=== PATIENT | female | born 1985 | race Caucasian/White ===

== ENCOUNTER 2024-11-08 15:42 | Outpatient (CLI) | payer BC, SELFPAY ==
[2024-11-08 16:23] LABS: Basophils # 0.1 K/mm3 (0-0.2); Basophils % 0.8 % (0.1-2.0); Eosinophils # 0.1 K/mm3 (0.0-0.4); Eosinophils % 1.4 % (0.1-12.0); Hematocrit 40.7 % (37.0-47.0); Hemoglobin 14.6 g/dL (12.2-16.2); Lymphocytes # 2.8 K/mm3 (0.7-4.5); Lymphocytes % 33.6 % (10-50); Mean Corpuscular HGB Conc 35.9 g/dL (31.8-35.4); Mean Corpuscular Hemoglobin 33.3 pg (27.0-31.2); Mean Corpuscular Volume 92.7 fl (81-99); Mean Platelet Volume 9.7 fl (7.4-10.4); Monocytes # 0.5 K/mm3 (0.1-1.0); Monocytes % 6.3 % (1.7-9.3); Neutrophils # 4.8 K/mm3 (1.8-7.8); Neutrophils % 57.7 % (37.0-80.0); Platelet Count 330 K/mm3 (142-424); Red Blood Count 4.39 M/mm3 (4.20-5.40); Red Cell Distribution Width 12.8 % (11.5-17.5); White Blood Count 8.3 K/mm3 (4.8-10.8)
[2024-11-08 16:36] LABS: Chloride 106 mmol/L (98-107)
[2024-11-08 16:37] LABS: Albumin Level 4.5 g/dl (3.5-5.0); Potassium 3.7 mmoL/L (3.5-5.1); Sodium 136 mmol/L (136-145)
[2024-11-08 16:39] LABS: Blood Urea Nitrogen 10 mg/dl (7-17); Estimated Glomerular Filt Rate 111 ml/min (>60); GFR (African American) 134 ML/MIN (>60)
[2024-11-08 16:40] LABS: Alanine Aminotransferase 19 U/L (12-78); Albumin/Globulin Ratio 1.7 (1.1-1.8); Alkaline Phosphatase 49 U/L (38-126); Anion Gap 10.7 mEq/L (5-15); Aspartate Amino Transferase 27 U/L (14-36); Bilirubin,Total 0.2 mg/dl (0.2-1.3); Calcium 9.2 mg/dl (8.4-10.2); Carbon Dioxide 23 mmol/L (22.0-30.0); Globulin 2.7 g/dL (1.3-3.2); Glucose 103 mg/dl (74-100); Total Protein,Serum 7.2 g/dl (6.3-8.2)
[2024-11-08 17:06] LABS: HCG,Quantitative < 2 mIU/ml (0-5.42)
== END 2024-11-08 23:59 | disposition home or self-care (01) ==
LOC: PREOP 15:43
PROVIDERS: PCP Nurse Practitioner; Visit Provider Obstetrics & Gynecology
DX: N93.9 Abnormal uterine and vaginal bleeding, unspecified (principal)
CPT/HCPCS: 80053; 84702; 85025

== ENCOUNTER 2024-11-10 10:20 | Day surgery (SDC) | payer BC, SELFPAY ==
[2024-11-08 16:06] VITALS: BMI 34.4
[2024-11-10] VITALS (10 sets, daily range): BP systolic 145–180; BP diastolic 87–116; PULSE 62–90; RESP 16–18; TEMP 36.2–36.3; O2SAT 95–99
[2024-11-10] MEDS: LACTATED RINGERS 1000ML 1,000 ML 999 ML IV (10:54)
--- NOTE | 2024-11-10 11:13 | P.PNANES_ITS ---
[facility] Disclaimer: The information contained in this section may have been updated after the patient was seen, as this information can be updated by other users. Medical History Depression Surgical History History of cholecystectomy History of adenectomy History of tonsillectomy Family History Mother Hypertension Father Afib Grandfather Alzheimer dementia Social History Smoking Status: Never smoker alcohol intake: never substance use type: denies use current occupational status: employed Travel in the last 8 weeks: None household members: spouse, family and children number of children: 2 number of grandchildren: 0 Have you lived/traveled outside [place] in past 30 days?: No Contact w/someone who lives/traveled outside [place] past 30 days?: No Exposure to someone with infectious disease in past 14 days?: No Do you have a fever (greater than 100.4 F or 38 C)?: No Have you tested positive for COVID-19: No Exposed to someone with COVID-19 in past 14 days?: No Do you have a sore throat?: No Do you have a cough?: No Do you have any weakness?: No Do you have any diarrhea?: No Are you experiencing any unusual bleeding?: No Do you have any muscle aches/pain?: No Do you have any abdominal pain?: No Are you experiencing loss of taste or smell?: No [facility] Anesthesia Checklist Patient Identification Patient Identification: Arm Band and Verbal (Name & ) Structural Data Admitted From: Home Planned Operative Procedure/s: hysterscopy D7C, myosure and novasure Consent for Planned Operative Procedure(s) Verified: Yes Verified Documents: Surgical Consent and History and Physical NPO Status Verified Time NPO: 00:00 Additional verifications Patient : No Anesthesia Reactions: No Hx Blood Transfusions: No Blood Transfusion Reaction: No Airway Assessment Mallampati Score:: Class III Dentition: Good Dentition Neurological Assessment Level of Consciousness: Awake, Alert and Appropriate Hx Seizures: No Numbness or tingling in extremities: No Anesthesia Plan Anesthesia Risk discussed: Yes Anesthesia Plan: Verified ASA Class: II Anesthesia Type: General
[2024-11-10] MEDS: SODIUM CHLORIDE IRRIG SOLUTION 3,000 ML 3000 ML IR (13:15)
[2024-11-10] MEDS: HYDRALAZINE 20MG/ML VIAL 5 MG IV (14:27)
--- NOTE | 2024-11-10 14:42 | EXP.OP.NOTE ---
Date of procedure: 11/10/24 Pre-op Diagnosis:: 1. Heavy uterine bleeding Post-op Diagnosis:: 1. Heavy uterine bleeding Procedure performed:: Hysteroscopy, dilation, and and curettage NovaSure endometrial ablation Surgeon:: Tabatha Stevenson DO COMMUNITY DEVELOPMENT COORDINATOR:: Shabbir Monroy Anesthesia: GETA Estimated blood loss (mL): 5 Operative findings:: Findings: -EUA revealed an 8-week anteverted uterus with regular contour. No significant prolapse or support defects noted. -Hysteroscopy revealed proliferative endometrium. Operative note:: The patient was taken back to the OR where general anesthesia was obtained.? She was placed in the dorsal lithotomy position using yellow fin stirrups and sterilely prepped and draped in the usual fashion.? An in and out catheter was used to drain her bladder.? A timeout was performed.? A weighted speculum was used to visualize this cervix, a single-tooth tenaculum was applied to the anterior lip of the cervix. The cervix was only slightly dilated to allow entry to the ectocervix and hydrodisection was used to get the scope the rest of the way into the cavity. The uterus sounded to 9 cm. The hysterscope was inserted and proliferative endometrium was noted. Images were obtained of the cavity. A #3 sharp curette was introduced through the cervical os and gently advanced to the fundus.? The endometrial cavity was sharply curetted 360 degrees.? Endometrial curettings were collected on a Telfa pad, passed off the operative field and sent to pathology for further evaluation.? The Novasure device was opened, deployed, and noted to be functioning properly. The device was inserted to the fundus, set to a length of 6cm, and deployed to a width of 3.7cm. Cavity integrity was assessed and adequate. The ablation was started and a power of 122W was noted. Total ablation time was 0:58 minutes. The Novasure device was removed from the cervical os and the hysterscope was reinserted. The endometrium was noted to be successfully ablated and an image was obtained. All instruments were removed from the vagina. Hemostasis was noted at the tenaculum sites. All counts were correct, per nursing. This concluded the procedure, the pt was awakened from anesthesia and transferred to the PACU in stable condition. The pt will be given 30mg IV Toradol postoperatively for pain control. The single-tooth tenaculum was removed and hemostasis was noted at the tenaculum sites.? All instruments were removed from the vagina.? All counts were correct, per nursing.? This concluded the procedure, the patient was awakened from anesthesia, and transferred to the PACU in stable condition. Postoperatively I was called to the PACU to see the patient and she complained of dysuria when voiding. She was sent Pyridium and will call the office if this does not improve Condition: stable Disposition: PACU Specimens:: Endometrial curettings Complications:: None
--- NOTE | 2024-11-11 10:28 | EXP.ANES.II ---
[facility] Anesthesia Record Part II Anesthesia Record Part II Discharge Time: 14:34 Destination: Surgical Day Care (OP Surgery) PACU nurse assessment reviewed?: Yes Patient Condition:: Good Anesthesia Complications:: None Swallowing reflex intact?: Yes Airway Patency: Patent Cyanosis?: No Blood Pressure: 147/94 SaO2: 95 Respiratory Rate: 16 Pulse Rate: 70 Temperature: 97.3 F Mental Status: Alert & Oriented Pain level:: 0 Nausea and/or vomitting:: None Intake, IV Amount: 0 Hydration: Adequate
--- NOTE | 2024-11-11 10:31 | EXP.ANES.I ---
[facility] Anesthesia Record Part I Anesthesia Record I Intake, IV Amount: 800 Hydration: Adequate Estimated blood loss (mL): 0 Urine output (mL): 0 Blood Products used (#): none Blood Pressure: 188/116 SaO2: 92 Pulse Rate: 88 Airway Patency: Patent Respiratory Rate: 8 Temperature: 97.3 F Patient is:: Drowsy, Stable and Unstable Stable to PACU at:: 13:44 Comments:: Hypetension on arrival in he recovery room. Treated with appresoline with desirable results.
[2024-11-11 10:36] VITALS: BP 188/116; PULSE 88; RESP 8; TEMP 36.3; O2SAT 92
[2024-11-11 10:38] VITALS: BP 147/94; PULSE 70; RESP 16; TEMP 36.3; O2SAT 95
== END 2024-11-10 15:21 | disposition home or self-care (01) ==
PROVIDERS: PCP Nurse Practitioner; Visit Provider Obstetrics & Gynecology
PROC: (CPT 58558; principal; 2024-11-10 12:15)
DX: N93.9 Abnormal uterine and vaginal bleeding, unspecified (principal)
CPT/HCPCS: 58563; J0360; J1100; J2250; J2405; J3010; J7120